=== PATIENT | male | born 1980 | race Two or more races ===

== ENCOUNTER → 2017-10-17 | Outpatient (CLI) | payer BC ==
[2017-10-19 07:42] LABS: HEPATITIS A AB IGM Negative (Negative); HEPATITIS B CORE AB IGM Negative (Negative); HEPATITS B SURFACE ANTIGEN Negative (Negative)
[2017-10-21 06:16] LABS: MUMPS IGG AB 15.3 AU/mL (Immune >10); RUBEOLA IGM AB <0.80 AU (0.00-0.79)
[2017-10-21 06:17] LABS: HEPATITIS C VIRUS ANTIBODY <0.1 s/co ratio (0.0-0.9); RUBELLA IGG AB 7.69 index (Immune >0.); VARICELLA ZOSTER IGG AB 287 index (Immune >16)
[2017-10-23 07:35] LABS: VARICELLA ZOSTER IGM AB <0.91 index (0.00-0.90)
== END ==
LOC: OD 16:07
PROVIDERS: ATTEND Internal Medicine
DX: R50.9 Fever, unspecified (principal)
CPT/HCPCS: 36415; 80074; 86735; 86762; 86765; 86787